=== PATIENT | female | born 1965 | race Caucasian/White ===

== ENCOUNTER 2024-03-13 00:22 | Emergency (ER) | payer OTHER, SELFPAY ==
--- NOTE | ~2024-03-13 | XR_ITS ---
EXAMINATION: XR CHEST CLINICAL INFORMATION: Generalized body ache COMPARISON: None available. TECHNIQUE: Frontal view of the chest was obtained. FINDINGS: Lung volumes are symmetric. No focal consolidation is seen. No evidence of pneumothorax, significant pleural effusion, or overt pulmonary edema. Cardiac size is within normal limits. Calcification is present at the aortic arch. No acute osseous findings are seen. XR/XR chest 1V IMPRESSION: No acute cardiopulmonary findings.
[2024-03-13 00:36] VITALS: BP 144/43; PULSE 68; RESP 20; TEMP 37.1; O2SAT 100
[2024-03-13 00:49] VITALS: BP 144/43; BP 150/70; PULSE 68; PULSE 78; RESP 20; TEMP 37.1; O2SAT 100; O2SAT 98; BMI 35.1
[2024-03-13 02:26] LABS: Basophils Percent Auto 0.4 % (0-2); Eosinophils Absolute Auto 0.1 X10*3/uL (0.0-0.4); Hematocrit 28.8 % (37.0-47.0); Hemoglobin 9.2 g/dl (12.0-16.0); Imm Gran Abs Auto 0.01 X10*3/uL (0.00-0.03); Imm Gran Pct Auto 0.2 % (0.0-0.4); Lymphocytes Absolute Auto 2.1 X10*3/uL (1.2-4.9); Lymphocytes Percent Auto 38.4 % (20-40); MANUAL DIFF FLAG NO; Mean Corpuscular HGB Conc 31.9 g/dl (31.0-35.0); Mean Corpuscular Hemoglobin 29.9 pg (27.0-33.0); Mean Corpuscular Volume 93.5 fL (80.0-98.0); Mean Platelet Volume 9.9 fL (9.4-12.3); Monocytes Absolute Auto 0.4 X10*3/uL (0.1-1.2); Monocytes Percent Auto 7.4 % (2-11); Neutrophils Absolute Auto 2.8 x10*3/uL (2.0-8.3); Neutrophils Percent Auto 51.6 % (45-73); Platelet Count 253 X10*3/uL (160-400); Red Blood Count 3.08 X10*6/uL (4.20-5.50); Red Cell Distribution Width 12.1 % (11.0-16.0); White Blood Count 5.4 X10*3/uL (4.8-10.8)
--- NOTE | 2024-03-13 02:27 | PC.NURSE ---
Purewick applied per EDTA
[2024-03-13 02:29] VITALS: BP 143/63; PULSE 60; RESP 18; O2SAT 99
[2024-03-13 02:40] LABS: Alanine Aminotransferase 11 U/L (0-31); Albumin Level 3.3 g/dL (3.5-5.0); Alkaline Phosphatase 51 U/L (39-117); Anion Gap 11 (12-20); Aspartate Amino Transferase 18 U/L (5-31); Bilirubin Direct 0.2 mg/dL (0.0-0.5); Bilirubin Total 0.4 mg/dL (0.0-1.0); Blood Urea Nitrogen 12 mg/dL (9-16); Calcium 8.8 mg/dL (8.4-10.2); Carbon Dioxide 27 mmol/L (22-29); Chloride 106 mmol/L (96-108); Creatinine Clr Calc Pharmacy 73.9; Estimated Glomerular Filt Rate > 60; Glucose Random 101 mg/dL (60-115); Potassium 4.1 mmol/L (3.3-5.1); Sodium 140 mmol/L (135-145); Total Protein 5.5 g/dL (6.5-8.0)
[2024-03-13 03:03] LABS: Influenza A PCR NEGATIVE (Negative); Influenza B PCR NEGATIVE (Negative); Resp Syncy Virus RNA Qual PCR NEGATIVE (Negative); SARS COV2 PCR INHOUSE NEGATIVE (Negative)
[2024-03-13 05:00] VITALS: BP 137/60; PULSE 70; RESP 20; TEMP 37.2; O2SAT 99
[2024-03-13 05:00] LABS: Appearance Urine Clear; Color Urine Yellow; Glucose Urine UA Negative (Negative); Leukocyte Esterase Urine Negative (Negative); Nitrite Urine Negative (Negative); PH >= 9.0 (5.0-9.0); Urine Blood Negative (Negative); Urine Ketones Negative (Negative); Urine Protein Negative (Neg-Trace)
[2024-03-13] MEDS: Ibuprofen 800 MG TABLET PO (05:05)
--- NOTE | 2024-03-13 07:09 | ED_ITS ---
HPI - Back Pain/Injury General Chief Complaint: General Medical Stated Complaint: flu like symptoms Time Seen by Provider: 03/13/24 04:40 Source: patient, EMS and exceptional needs teacher Mode of arrival: EMS Limitations: no limitations History of Present Illness HPI Narrative: 58 yo female with PMH of CVA on aspirin, DM, HTN, HLD, GERD, peripheral neuropathy on gabapentin here with c/o bilateral foot pain that the gabapentin does not help and she cannot take it anymore. No rash or new swelling just needs something so the pain is not as bad and she can sleep MD elicited complaint: other (foot pain) Pertinent past history: other (neuropathy) Onset (ago): month(s) Timing: progressively worsening Severity: similar to previous episodes Similar Symptoms Previously: Yes Quality: burning and throbbing Radiation: none Exacerbating factors: none Relieving factors: none Context: other (diabetes) Associated symptoms: denies other symptoms Work related injury: No Related Data Allergies Allergy/AdvReac Type Severity Reaction Status Date / Time No Known Allergies Allergy Verified 03/13/24 00:54 Review of Systems 2 Review of Systems: Constitutional : No Fever, No Chills ENT/Mouth : No Ear Pain, No Hoarseness, No sore throat Eyes: No Eye Pain, No Swelling, No Redness, No Foreign Body Cardiovascular : No Chest Pain, No SOB Respiratory : No Cough, No Dyspnea Gastrointestinal : No Nausea, No Vomiting, No Diarrhea, No abdominal Pain Genitourinary : No Dysuria, No Hematuria Musculoskeletal : positive joint pain, No Myalgias, No Joint Swelling Skin : No Skin lacerations, No rash Neuro : No Weakness, No Numbness, No Loss of Consciousness, No Dizziness, No Headache Psych : No Anxiety/Panic, No Depression Heme/Lymph: no easy bruising, no Lymphadenopathy Endocrine : No Polyuria, No Polydipsia All other systems reviewed and are negative [facility] Past Medical History Attestation statement: The following information was validated with the patient. Source: old records reviewed Medical History Neuropathy Acute CVA (cerebrovascular accident) Diabetes Social History Social History (Updated 03/13/24 @ 08:07 by Renae Retana DO) Patient Tobacco Use Status: Never used Tobacco Advance Directives: No Advance Directives Information Provided: Yes Do you have a plan to hurt others: No Plan Physical Exam 2 Vital Signs: Vital Signs: Last Vital Signs Temp 98.9 F 03/13/24 05:00 Pulse 70 03/13/24 05:00 Resp 20 03/13/24 05:00 BP 137/60 03/13/24 05:00 Pulse Ox 99 03/13/24 05:00 O2 Del Method Room Air 03/13/24 05:00 BMI result Body Mass Index 35.1 Appearance: Alert. Oriented X3. No acute distress. Eyes: Pupils equal, round and reactive to light. ENT: Pharynx normal. Neck: Normal inspection. Neck supple. CVS: Normal heart rate and rhythm. Pulses normal. Respiratory: No respiratory distress. Breath sounds normal. Abdomen: Soft and nontender. Skin: Skin warm and dry. pale skin color. Normal skin turgor. Extremities: No lower extremity edema. No calf ttp distal pulses intact both feet BCR in all digits Neuro: Oriented X 3. No motor deficit. No sensory deficit. Course Course Course Narrative: hemoglobin 10.7 2022 hx of anemia denies GIB symptoms at this time will have her follow up with PCP no CP/SOB fatigue Reevaluation(s) Reevaluation #1: discussed anemia with patient Reevaluation #2: patient did not disclose she was on suboxone when I asked about pain medications at this time she has regular Rx I cannot not prescribe her any narcotics she is already on gabapentin she needs to follow up with PCP Medications Administered Discontinued Medications Generic Name Dose Route Start Last Admin Trade Name Freq PRN Reason Stop Dose Admin Ibuprofen 800 mg 03/13/24 04:49 03/13/24 05:05 Ibuprofen 800 Mg Tablet PO 03/13/24 04:50 800 mg ONCE ONE Administration Medical Decision Making Medical Decision Making [facility] [place] Narrative: 58 yo female with PMH of CVA on aspirin, DM, HTN, HLD, GERD, peripheral neuropathy on gabapentin here with c/o bilateral foot pain that no longer responds to gabapentin - at this time she is NV intact no signs of infection other than anemia I need to compare to [facility] labs are reassuring no signs of DVT will start on short course pain medications and refer to pain management Differential Diagnosis Differential Diagnoses: The differential diagnosis associated with the presentation includes neuropathy, chronic pain Admission/Observation Consideration of admission/observation: Escalation of care including admission/observation considered chronic pain issue at this time stable for DC Lab Data [facility] [place] Lab Attestation statement: I reviewed the patient's lab results. 03/13/24 02:22 03/13/24 02:22 Labs: Lab Results 03/13/24 03/13/24 Range/Units 02:22 04:53 WBC 5.4 (4.8-10.8) X10*3/uL RBC 3.08 L (4.20-5.50) X10*6/uL Hgb 9.2 L (12.0-16.0) g/dl Hct 28.8 L (37.0-47.0) % MCV 93.5 (80.0-98.0) fL MCH 29.9 (27.0-33.0) pg MCHC 31.9 (31.0-35.0) g/dl RDW 12.1 (11.0-16.0) % Plt Count 253 (160-400) X10*3/uL MPV 9.9 (9.4-12.3) fL Immature Gran % (Auto) 0.2 (0.0-0.4) % Neut % (Auto) 51.6 (45-73) % Lymph % (Auto) 38.4 (20-40) % [place] % (Auto) 7.4 (2-11) % Eos % (Auto) 2.0 (0-4) % Baso % (Auto) 0.4 (0-2) % Lymph # (Auto) 2.1 (1.2-4.9) X10*3/uL [place] # (Auto) 0.4 (0.1-1.2) X10*3/uL Eos # (Auto) 0.1 (0.0-0.4) X10*3/uL Baso # (Auto) 0.0 (0.0-0.2) X10*3/uL Abs Immat Gran (auto) 0.01 (0.00-0.03) X10*3/uL Absolute Neuts (auto) 2.8 (2.0-8.3) x10*3/uL Absolute Nucleated RBC 0.000 (0.0-0.012) X10*3/uL Nucleated RBC % (auto) 0.0 (0.0-0.2) /100WBC Sodium 140 (135-145) mmol/L Potassium 4.1 (3.3-5.1) mmol/L Chloride 106 (96-108) mmol/L Carbon Dioxide 27 (22-29) mmol/L Anion Gap 11 L (12-20) BUN 12 (9-16) mg/dL Creatinine 0.86 (0.5-1.4) mg/dL Estim Creat Clear Calc 73.9 Estimated GFR > 60 Random Glucose 101 (60-115) mg/dL Calcium 8.8 (8.4-10.2) mg/dL Total Bilirubin 0.4 (0.0-1.0) mg/dL Direct Bilirubin 0.2 (0.0-0.5) mg/dL AST 18 (5-31) U/L ALT 11 (0-31) U/L Alkaline Phosphatase 51 (39-117) U/L Total Protein 5.5 L (6.5-8.0) g/dL Albumin 3.3 L (3.5-5.0) g/dL Urine Color Yellow Urine Appearance Clear Urine pH >= 9.0 (5.0-9.0) Ur Specific [place] 1.010 (1.005-1.025) Urine Protein Negative (Neg-Trace) mg/dL Urine Glucose (UA) Negative (Negative) mg/dL Urine Ketones Negative (Negative) mg/dL Urine Blood Negative (Negative) Urine Nitrite Negative (Negative) Ur Leukocyte Esterase Negative (Negative) Influenza Type A (PCR) NEGATIVE (Negative) Influenza Type B (PCR) NEGATIVE (Negative) RSV RNA Qual (PCR) NEGATIVE (Negative) SARS-CoV-2 RNA (RT-PCR) NEGATIVE (Negative) External Record Review External record reviewed: Outpatient record Prescription Management I considered prescription management with: Pain Medication Discharge Plan Discharge Clinical Impression: Neuropathy Patient Disposition: Home, Self-Care Instructions: Peripheral Neuropathy (ED), Anemia (ED) Additional Instructions: you need to follow up with your doctor in regards to your chronic pain this is not managed from the ER you can also follow up with a pain management clinic you are anemic 9.2 your prior was around 10 please make sure your doctor is aware [facility] [id number] [phone] Print Language: Serbian
[2024-03-13 09:07] VITALS: BP 143/57; PULSE 67; RESP 18; TEMP 36.8; O2SAT 99
[2024-03-13] MEDS: oxyCODONE HCl Immed Release 5 MG TABLET PO (09:08)
--- NOTE | 2024-03-13 10:20 | PC.NURSE ---
with automatic bow maker machine tender, got in touch with pt's Damion who said he would call the pt's [id number] to come and pick her up
--- NOTE | 2024-03-13 11:45 | PC.NURSE ---
with motor vehicle parts interpreter called again to try and get in touch with pt's family member for ride. No answer
== END 2024-03-13 12:00 | disposition home or self-care (01) ==
PROVIDERS: Emergency Medicine; Emergency Provider Emergency Medicine
DX: E11.42 Type 2 diabetes mellitus with diabetic polyneuropathy (principal); I10 Essential (primary) hypertension; Z86.73 Personal history of transient ischemic attack (TIA), and cerebral infarction without residual deficits; Z79.82 Long term (current) use of aspirin; Z79.899 Other long term (current) drug therapy
CPT/HCPCS: 0241U; 71045; 80048; 80076; 81003; 85025; 99283; 99284